=== PATIENT | male | born 2000 | race Two or more races ===

== ENCOUNTER 2024-10-14 19:32 | Emergency (ER) | payer OTHER ==
[~2024-10-14] VITALS: Ht 180.3 cm; Wt 92.1 kg
[2024-10-14] MEDS ORDERED: FAMOTIDINE/PF 20 MG in 0.9 % SODIUM CHLORIDE 8 ML IV PUSH STA (21:20)
[2024-10-14] MEDS ORDERED: FAMOTIDINE/PF 20 MG/2 ML VIAL ONE (21:24)
[2024-10-14] MEDS ORDERED: METHYLPREDNISOLONE SOD SUCC 125 MG VIAL ONE (21:24)
[2024-10-14] MEDS ORDERED: ONDANSETRON HCL 2 MG/ML VIAL ONE (21:24)
[2024-10-14] MEDS ORDERED: KETOROLAC TROMETHAMINE 30 MG VIAL ONE (21:24)
[2024-10-14] MEDS ORDERED: KETOROLAC TROMETHAMINE 30 MG VIAL IV ONE (21:30)
[2024-10-14] MEDS ORDERED: METHYLPREDNISOLONE SOD SUCC 125 MG VIAL IV ONE (21:30)
[2024-10-14] MEDS ORDERED: ONDANSETRON HCL 2 MG/ML VIAL IV ONE (21:30)
[2024-10-14 21:49] LABS: HEMATOCRIT 45.5 % (39.0-48.0); HEMOGLOBIN 15.3 g/dL (13-16.00); MEAN CELL VOLUME 92.3 fL (80.0-100.00); MEAN CORPUSCULAR HGB CONC 33.6 g/dl (32.0-36.0); PLATELET COUNT 207 K/uL (150-450); RED BLOOD COUNT 4.93 M/uL (4.00-6.00)
[2024-10-14 21:59] LABS: ALBUMIN 3.9 gm/dL (3.4-5.0); BILIRUBIN TOTAL 0.43 mg/dL (0.3-1.2); BILIRUBIN,CONJUGATED 0.16 mg/dL (0.0-0.2); BILIRUBIN,UNCONJUGATED 0.27 mg/dL (0.0-0.6); CALCIUM 9.2 mg/dL (8.5-10.1); CREATININE SERUM 0.8 mg/dL (0.70-1.30); GFR 117.78; GLOBULINA 4.3 G/DL (2.4-3.5); TOTAL PROTEIN 8.2 gm/dL (6.4-8.2)
[2024-10-14] MEDS ORDERED: PEPCID AC20 MG PO (22:55)
[2024-10-14] MEDS ORDERED: CARAFATE1 GM PO (22:55)
== END 2024-10-14 23:15 | disposition home or self-care (01) ==
LOC: ER 19:34
PROVIDERS: General Practice
DX: R10.11 Right upper quadrant pain (principal); R10.9 Unspecified abdominal pain